=== PATIENT | female | born 1935 | race Caucasian/White ===

== ENCOUNTER 2017-09-30 13:27 | Inpatient (IN) | payer MEDICARE ==
[~2017-09-30 13:27] MED LIST: Lidocaine 1% PF 5 ML VIAL ONE; Ondansetron HCl/PF 4 MG/2 ML Vial ONE; PHENYLEPHRINE-NS 100 MCG/ML 10 ML SYRINGE ONE; PROPOFOL 200 MG/20 ML VIAL ONE; ePHEDrine/0.9% NaCl/PF SYRINGE 50 mg/10 ml ONE
[2017-09-30] MEDS ORDERED: Morphine 4 MG/ML VIAL ONE (15:25)
--- NOTE | 2017-09-30 15:50 | RAD ---
LEFT HIP TWO VIEW 09/30/17 HISTORY: Possible left femur fracture. COMPARISON: None. FINDINGS: There is an impacted valgus angulated subcapital left femoral neck fracture. The obturator ring is in tact on the left. Moderate degenerative disease. IMPRESSION: Mildly impacted and minimally valgus angulated subcapital left femoral neck fracture. POS: [facility]
[2017-09-30] MEDS ORDERED: CEFAZOLIN/Water 2 GM/20 ML SYRINGE SLOW IVP SCH (16:45)
--- NOTE | 2017-09-30 17:27 | CON ---
DATE OF CONSULTATION: 09/30/2017 CHIEF COMPLAINT: Left hip pain. HISTORY OF PRESENT ILLNESS: Ms. Huertas is an 82-year-old female, who fell today. She lost her matilda ce. She tripped and fell on her left side. She had immediate pain. She was unable to bear weight. She was taken to the emergency department in [place] where x-rays were obtained. These demonstrat ed a left femoral neck fracture. She has been since transferred to the [facility] [place]. Orthopedics was consulted for this injury. She denies other injury. She did not lose conscious ness or strike her head. PAST MEDICAL HISTORY: The patient reports being healthy and active. She denies significant active m edical problems. She did fracture her left tibia in the 1960s, treated in a long leg cast. PAST SURGICAL HISTORY: No recent surgeries. ALLERGIES: No known drug allergies. MEDICATIONS: No active medications. SOCIAL HISTORY: The patient denies tobacco, alcohol, or drug use. She lives independently. She is active and golfing and other daily activities without any assistive devices. FAMILY MEDICAL HISTORY: Noncontributory. REVIEW OF SYSTEMS: Positive for left hip pain, otherwise 10-point review of systems is negative. PHYSICAL EXAMINATION: VITAL SIGNS: Stable. She is normotensive. GENERAL: Alert and oriented, in no apparent distress. RESPIRATORY: Breathing comfortably. ABDOMEN: Soft, nontender, nondistended. HEENT: Normocephalic, atraumatic. CARDIOVASCULAR: Pulses palpable and irregularly irregular peripherally. MUSCULOSKELETAL: The patient's left leg is slightly externally rotated. It is not significantly abbe rtened. She is neurovascularly intact distally. She has a palpable pulse. IMAGES: X-rays of the left hip are reviewed, which show a valgus impacted femoral neck fracture with minimal displacement. IMPRESSION: Left valgus impacted femoral neck fracture. PLAN: At this point, I think the patient would do well with operative intervention. We will plan fo r percutaneous screw fixation of the femoral neck fracture to hopefully stabilize her fracture and al low healing. I have reviewed other options including hemiarthroplasty or total hip arthroplasty, alt fred the patient wants to proceed with a more minimal approach. She is aware of risk of avascular n ecrosis to place displacement or nonunion, requiring total hip arthroplasty in the future. She is aw are of postoperative recovery process. She will remain n.p.o. She will have adequate pain control a nd antibiotic and DVT prophylaxis.
--- NOTE | 2017-09-30 17:34 | HP ---
DATE OF ADMISSION: 09/30/2017 REQUESTING PHYSICIAN: Mark Lawrence DO ATTENDING SURGEON: Dr. Sesay. CONSULTATIONS: Orthopedics, Dr. Abraham. HISTORY OF PRESENT ILLNESS: The patient is an 82-year-old woman who reportedly was at home this morning when she tripped and fell and landed on her left hip. The patient was able to get hers elf up to bed and called 911 where she was taken to the emergency room in [place] where she underwe nt evaluation examination and was noted to have a left femoral neck fracture. She was eventually tra nsferred here to our facility to undergo evaluation for surgical intervention and admission. The pat ient denies shortness of breath, loss of consciousness or chest pain. ALLERGIES: None. CURRENT MEDICATIONS: None. PAST MEDICAL HISTORY: Cervical cancer. PAST SURGICAL HISTORY: Hysterectomy. SOCIAL HISTORY: Patient denies tobacco, alcohol, or drug use. Currently lives at home with family. REVIEW OF SYSTEMS: Ten-point review of systems is negative unless otherwise stated. PHYSICAL EXAMINATION: VITAL SIGNS: Blood pressure 114/51, heart rate 78, respirations 16, oxygen saturation is 95% on room air, temperature is 98.1. GENERAL: Patient is resting comfortably in bed. She is alert and oriented x3. [place] coma scale i s 15. HEENT: Head is normocephalic, atraumatic. Eyes: Extraocular motion intact. PERRLA bilaterally. E ars are atraumatic without discharge. Nose is atraumatic without discharge. Oropharynx is clear. NECK: Nontender. Trachea is midline. There is no JVD. CHEST: Clear to auscultation bilaterally with good inspiratory and expiratory effort. HEART: Regular rate and rhythm. ABDOMEN: Soft, flat, nontender with active bowel sounds. Pelvis is stable. The patient is tender t o palpation to the left hip. She has the left hip slightly flexed and internally rotated. EXTREMITIES: Neurovascularly intact x4. BACK: Nontender and atraumatic. LABORATORY FINDINGS: Patient's labs from [place] have not been faxed yet. We will follow up with them and repeat them if needed. RADIOGRAPHS: AP pelvis and two views of the left hip show an impacted left femoral neck fracture. ASSESSMENT AND PLAN: 1. Status post ground level fall. 2. Left femoral neck fracture. 3. Acute pain secondary to trauma. Plan will be to admit the patient to the surgical floor, await evaluation by Dr. Abraham. Patient will be n.p.o. We will do IV pain medications and have physical and occupational therapy evaluate th e patient postoperatively. The evaluation examination, laboratory and radiographic findings were all discussed with Dr. Sesay who will see the patient up on the floor.
[2017-09-30] MEDS ORDERED: Promethazine HCl 25 MG/ML VIAL SLOW IVP PRN (19:37)
[2017-09-30] MEDS ORDERED: Promethazine HCl 25 MG/ML VIAL IM PRN (19:37)
[2017-09-30] MEDS ORDERED: Ondansetron HCl/PF 4 MG/2 ML Vial IVP PRN ×2 (19:37→20:59)
[2017-09-30] MEDS ORDERED: Fentanyl 100 MCG/2 ML VIAL ONE (19:48)
--- NOTE | 2017-09-30 20:14 | RAD ---
EXAM: INTRAOPERATIVE FLUOROSCOPY 09/30/17 HISTORY: ORIF. Left hip fracture. COMPARISON: 09/30/17. EXPOSURE: Not provided. FINDINGS: Internal fixation pins project over the left hip. Alignment is near anatomic. IMPRESSION: Fluoroscopy as above. POS: [facility]
[2017-09-30] MEDS ORDERED: Morphine 4 MG/ML VIAL SLOW IVP PRN (20:59)
[2017-09-30] MEDS ORDERED: Dextrose 50% Abboject 50 ML SYRINGE SLOW IVP PRN (20:59)
[2017-09-30] MEDS ORDERED: Dextrose 5% in Water 1,000 ML IV PRN (20:59)
[2017-09-30] MEDS ORDERED: Ondansetron ODT 4 MG TAB PO PRN (20:59)
[2017-09-30] MEDS ORDERED: hydrALAZINE 20 MG/ML VIAL SLOW IVP PRN (20:59)
[2017-09-30] MEDS ORDERED: Morphine 2 MG/ML SYRINGE IVP PRN (20:59)
[2017-09-30 21:15] VITALS: BMI 21.9
[2017-09-30 21:30] LABS: #Basophils 0.1 thou/uL (0.0-0.2); #Eosinphils 0.1 thou/uL (0.0-0.7); #Lymphocytes 1.9 thou/uL (1.20-3.40); %Basophils 0.4 % (0.0-1.0); %Eosinophils 0.8 % (0.0-10.0); %Lymphocytes 13.6 % (21.0-51.0); %Monocytes 6.8 % (0.0-10.0); %Neutrophils 78.4 % (42.0-75.0); Hemoglobin 11.6 g/dL (12.0-16.0); Mean Corpuscular HGB CONC 32.2 g/dL (32.0-36.0); Mean Corpuscular Hemoglobin 30.1 pg (27.0-31.0); Mean Corpuscular Volume 93.6 fl (81.0-99.0); Mean Platelet Volume 6.5 fL (7.4-10.4); Platelet Count 319 thou/uL (130-400); RBC Distribution Width 12.3 % (11.5-14.5); Red Blood Cell (RBC) Count 3.83 mill/uL (4.20-5.40); White Blood Cell (WBC) Count 14.1 thou/uL (4.8-10.8)
[2017-09-30 21:46] LABS: Anion Gap 12 mmol/L (10-20); BUN (Urea Nitrogen) 14 mg/dL (9.8-20.1); Calc. Creatinine Clearance 57 mL/min (70-130); Calcium 8.9 mg/dL (7.8-10.44); Carbon Dioxide 24 mmol/L (23-31); Chloride 108 mmol/L (98-107); Estimated GFR-MDRD 79; Glucose 114 mg/dL (83-110); Magnesium 1.8 mg/dL (1.6-2.6); Phosphorus 3.6 mg/dL (2.3-4.7); Potassium 4.1 mmol/L (3.5-5.1); Sodium 140 mmol/L (136-145)
[2017-09-30] MEDS: Sodium Chloride 0.9% 1,000 ML IV SCH (22:05)
[2017-09-30] MEDS: Ketorolac Tromethamine 30 MG/ML VIAL IVP SCH (22:05)
[2017-09-30] MEDS: Famotidine 20 MG TAB PO SCH (22:05)
[2017-09-30] MEDS: Acetaminophen 1,000 MG in Premix Bag 1 BAG IVPB SCH (22:21)
--- NOTE | 2017-09-30 22:52 | PRG ---
DATE OF SERVICE: 09/30/2017 SUBJECTIVE: Jaclyn Huertas is an 82-year-old female, postop day 0, status post hip fracture repair. She is recently returned to the floor from the OR. She vocalizes no complaints this evening. Pain is well controlled. OBJECTIVE: VITAL SIGNS: Reviewed and stable. GENERAL: The patient is on room air. Resting in bed, in no acute distress. LUNGS: Breathing is nonlabored. ASSESSMENT AND PLAN: Status post fall, postop day 0, hip fracture repair. IV fluids currently 120cc/hr reduced to 80. Follow urine output. P.o. pain management. Care otherwise as ordered. A.m. labs. Continue to monitor. MTDD
[2017-10-01] MEDS: Acetaminophen 1,000 MG in Premix Bag 1 BAG IVPB SCH (03:29)
[2017-10-01] MEDS: Ketorolac Tromethamine 30 MG/ML VIAL IVP SCH (03:30)
[2017-10-01 06:13] LABS: #Eosinphils 0.3 thou/uL (0.0-0.7); #Lymphocytes 2.1 thou/uL (1.20-3.40); #Monocytes 0.9 thou/uL (0.11-0.59); #Neutrophils 6.3 thou/uL (1.40-6.50); %Basophils 0.4 % (0.0-1.0); %Eosinophils 2.9 % (0.0-10.0); %Lymphocytes 22.2 % (21.0-51.0); %Neutrophils 65.5 % (42.0-75.0); Mean Corpuscular HGB CONC 31.8 g/dL (32.0-36.0); Mean Corpuscular Volume 94.4 fl (81.0-99.0); Mean Platelet Volume 6.4 fL (7.4-10.4); Platelet Count 267 thou/uL (130-400); RBC Distribution Width 12.4 % (11.5-14.5); Red Blood Cell (RBC) Count 3.66 mill/uL (4.20-5.40); White Blood Cell (WBC) Count 9.6 thou/uL (4.8-10.8)
[2017-10-01 06:36] LABS: Anion Gap 10 mmol/L (10-20); BUN (Urea Nitrogen) 13 mg/dL (9.8-20.1); Calc. Creatinine Clearance 56 mL/min (70-130); Calcium 8.5 mg/dL (7.8-10.44); Carbon Dioxide 23 mmol/L (23-31); Chloride 109 mmol/L (98-107); Estimated GFR-MDRD 78; Glucose 108 mg/dL (83-110); Potassium 3.9 mmol/L (3.5-5.1); Sodium 138 mmol/L (136-145)
[2017-10-01] MEDS: traMADol HCl 50 MG TAB PO PRN ×2 (10:03→15:55)
[2017-10-01] MEDS: Famotidine 20 MG TAB PO SCH ×2 (10:03→19:48)
--- NOTE | 2017-10-01 11:11 | OP ---
DATE OF PROCEDURE: 09/30/2017 PREOPERATIVE DIAGNOSIS: Left femoral neck fracture. POSTOPERATIVE DIAGNOSIS: Left femoral neck fracture. OPERATION: Left hip percutaneous screw fixation. IMPLANTS: Three 7.3 mm cannulated screws from [employer] were used. SURGEON: Vijay Abraham M.D. ANESTHESIA: General plus local. COMPLICATIONS: None. ESTIMATED BLOOD LOSS: 50 mL INDICATIONS: Ms. Huertas is an 82-year-old female who fell. She sustained a fracture of the femoral neck on the left hip. This was valgus impacted. She was indicated for percutaneous screw fixation t o restore alignment and hopefully stabilize the fracture while she heals. Risks have been reviewed i ncluding avascular necrosis, screw or hardware related pain, infection, wound problem and others. DESCRIPTION OF PROCEDURE: Ms. Huertas was identified in the preoperative holding area. Her correct e xtremity was marked. She was carried to the operating room. She was positioned supine. General ane sthesia was induced. She was placed on the fracture table. Intraoperative x-ray was used to evaluat e the fracture. We then prepped and draped the left lower extremity. At this point, we made a small incision over the lateral thigh. We dissected down through the subcutaneous tissue to the bony leve l. A guidewire was then inserted in the inferior position of the femoral neck. We placed 2 addition al guidewires to perform an inverted triangle pattern. At this point, we took x-ray images confirmin g placement. We then overdrilled the guidewires. We subsequently placed three 7.3 mm cannulated scr ews. We took final x-ray images. At this point, the wound was irrigated and closed with 2-0 Vicryl suture and seth for the skin. A sterile dressing was applied. The patient was taken to the [facility] room in good condition without complication.
[2017-10-01] MEDS: Sodium Chloride 0.9% 1,000 ML IV SCH ×2 (11:38→19:49)
--- NOTE | 2017-10-01 11:49 | PRG ---
DATE OF SERVICE: 10/01/2017 SUBJECTIVE: The patient is hospital day #2, postop day #1 status post ground level fall which she khalil stained a left hip fracture. The patient underwent open reduction internal fixation of same. She to lerated this procedure well. This morning, she states her pain is controlled. She is tolerating a d iet and is awaiting physical and occupational therapy. PHYSICAL EXAMINATION: VITAL SIGNS: Temperature is 97.7, heart rate 66, blood pressure 101/55, respirations 16, oxygen satu ration is 97% on 1 liter via nasal cannula. GENERAL: The patient is resting comfortably in bed. She is alert and oriented x3. [place] coma sca le is 15. HEENT: Unremarkable. LUNGS: Clear to auscultation with good inspiratory and expiratory effort. HEART: Regular rate and rhythm. ABDOMEN: Soft, flat, nontender with active bowel sounds. EXTREMITIES: Neurovascularly intact x4. Postop dressing is clean, dry, and intact. LABORATORY DATA: White blood cell count 9.6, hemoglobin 11.0, hematocrit 34.6, platelets 267. Sodiu m 138, potassium 3.9, chloride 109, CO2 of 23, BUN 13, creatinine 0.72, glucose 108. There are no ra diographs reviewed this morning. ASSESSMENT AND PLAN: 1. Status post ground level fall. 2. Left femoral neck fracture status post open reduction internal fixation. Plan will be to begin physical and occupational therapy, rehab consultation, p.o. pain control and co ntinue supportive care. This examination was done with Dr. Sesay during rounds this morning.
[2017-10-01] MEDS: Acetaminophen 500 MG TAB PO SCH ×3 (12:54→23:59)
[2017-10-01] MEDS: traMADol HCl 50 MG TAB PO SCH ×3 (12:54→23:59)
[2017-10-01] MEDS: Ibuprofen 200 MG TAB PO SCH ×2 (15:54→19:49)
--- NOTE | 2017-10-01 21:24 | PRG ---
DATE OF SERVICE: 10/01/2017. SUBJECTIVE: This is an 82-year-old female postop day #1 status post hip fracture repair after a grou nd-level fall. The patient has done well throughout the day. Pain is controlled. She has no compla int this evening. OBJECTIVE: VITAL SIGNS: Reviewed and stable. GENERAL: The patient is resting in bed on room air in no acute distress. Breathing is nonlabored. ASSESSMENT: As documented in daily progress note. PLAN: Continue care as ordered. Continue to monitor.
[2017-10-02] MEDS: traMADol HCl 50 MG TAB PO SCH ×4 (04:47→23:52)
[2017-10-02] MEDS: Acetaminophen 500 MG TAB PO SCH ×4 (04:47→23:52)
[2017-10-02] MEDS: traMADol HCl 50 MG TAB PO PRN (09:25)
[2017-10-02] MEDS: Famotidine 20 MG TAB PO SCH ×2 (09:25→21:11)
[2017-10-02] MEDS: Ibuprofen 200 MG TAB PO SCH ×3 (09:25→21:11)
[2017-10-02] MEDS: Senokot S 8.6-50 MG TAB PO SCH (21:12)
--- NOTE | 2017-10-02 22:51 | DIS ---
DATE OF ADMISSION: 09/30/2017 DATE OF DISCHARGE: 10/02/2017 ADMISSION DIAGNOSES: 1. Status post ground-level fall. 2. Left femoral neck fracture. CONSULTATIONS: Orthopedics, Dr. Abraham. PROCEDURE: Left hip percutaneous screw fixation. HISTORY OF PRESENT ILLNESS: The patient is an 82-year-old woman, who reportedly fell at [facility] and landed on her left hip. The patient was brought to the emergency department in [facility] she underwent evaluation and examination and was noted to have a left hip fracture, at which time, she was transferred to our facility for us to admit her and obtain orthopedic consultation. HOSPITAL COURSE: The patient was able to undergo her procedure, which she tolerated well. The , the patient was able to work with physical and occupational therapy and at the time of disc harge, she had continued to progress with physical and occupational therapy. Her pain was controlled . She was tolerating her diet and she was discharged to the swing bed facility in [place]. She wi ll follow up with Dr. Abraham in 2-3 weeks, sooner as needed. Of note, the patient originally was supposed to leave today, but it was for transportation reasons, she will leave first thing in the [facility], [place].
--- NOTE | 2017-10-03 03:50 | PRG ---
DATE OF SERVICE: 10/02/2017 SUBJECTIVE: This is an 82-year-old female postop day #2 status post hip fracture repair after a grou nd level fall. Patient has continued to do well during her hospitalization. She was scheduled for d ischarge in the morning; however, this evening our facility was contacted by the [facility] a nd informed that there were issues with insurance paperwork. The patient will be unable to be discha rged in a.m. Tonight, she vocalizes no complaint. OBJECTIVE: VITAL SIGNS: Reviewed and stable. GENERAL: The patient is afebrile. Resting in bed in no acute distress. Breathing is nonlabored. ASSESSMENT AND PLAN: As documented in the daily progress note. Continue care as ordered. Continue PT and OT. Continue to monitor.
[2017-10-03] MEDS: Acetaminophen 500 MG TAB PO SCH ×3 (06:19→20:08)
[2017-10-03] MEDS: traMADol HCl 50 MG TAB PO SCH ×3 (06:20→20:08)
[2017-10-03] MEDS: Polyethylene Glycol 3350 17 GM Packet PO SCH (09:08)
[2017-10-03] MEDS: Senokot S 8.6-50 MG TAB PO SCH ×2 (09:08→20:35)
[2017-10-03] MEDS: Ibuprofen 200 MG TAB PO SCH ×3 (09:08→20:37)
[2017-10-03] MEDS: Famotidine 20 MG TAB PO SCH ×2 (09:08→20:34)
[2017-10-03] MEDS: traMADol HCl 50 MG TAB PO PRN (09:30)
--- NOTE | 2017-10-03 18:43 | PRG ---
DATE OF SERVICE: 10/03/2017 SUBJECTIVE: The patient is status post left hip fracture in which she underwent left percutaneous sc rew fixation. Originally, the patient was supposed to be discharged this morning, but for some unkno wn insurance reasons, the patient now will be here most likely until Thursday. Otherwise, the patient is doing well. She continues to tolerate diet. Her pain is controlled. She worked with physical an d occupational therapy. PHYSICAL EXAMINATION: VITAL SIGNS: Temperature is 97.8, heart rate is 62, blood pressure 143/74, respirations 20, and oxyg en saturation is 96% on room air. HEENT: Unremarkable. CHEST: Lungs are clear to auscultation bilaterally. HEART: Regular rate and rhythm. ABDOMEN: Soft, flat, and nontender with active bowel sounds. EXTREMITIES: Neurovascularly intact x4. Postop dressing is clean, dry, and intact. LABORATORY DATA: There are no labs or radiographs to review this morning. ASSESSMENT AND PLAN: 1. Status post ground level fall. 2. Status post left hip fracture which subsequently underwent percutaneous pinning. Plan will be to continue physical and occupational therapy and await placement.
--- NOTE | 2017-10-03 23:42 | PRG ---
DATE OF SERVICE: 10/03/2017 SUBJECTIVE: This is an 82-year-old female status post hip fracture repair. The patient is currently awaiting insurance approval for placement. She vocalized no complaint this evening. OBJECTIVE: VITAL SIGNS: Reviewed and stable. The patient is afebrile. LUNGS: Breathing is nonlabored. ASSESSMENT AND PLAN: As documented in daily progress note. Continue care as ordered. Continue PT/O T. Continue to monitor.
[2017-10-04] MEDS: Acetaminophen 500 MG TAB PO SCH ×5 (00:29→23:54)
[2017-10-04] MEDS: traMADol HCl 50 MG TAB PO SCH ×5 (00:29→23:54)
[2017-10-04] MEDS: Famotidine 20 MG TAB PO SCH ×2 (10:07→21:48)
[2017-10-04] MEDS: Ibuprofen 200 MG TAB PO SCH ×3 (10:07→21:48)
[2017-10-04] MEDS: Senokot S 8.6-50 MG TAB PO SCH ×2 (10:08→21:48)
[2017-10-04] MEDS: Polyethylene Glycol 3350 17 GM Packet PO SCH (10:08)
--- NOTE | 2017-10-04 16:59 | PRG ---
DATE OF SERVICE: 10/04/2017 SUBJECTIVE: The patient is status post ground level fall which she sustained a left hip fracture whi ch subsequently underwent percutaneous pinning. The patient tolerated this procedure well and has be en working with physical and occupational therapy. The patient is currently awaiting insurance appro abel for placement. The patient is tolerating a diet. Pain is controlled and has no current complain ts. PHYSICAL EXAMINATION: VITAL SIGNS: Temperature is 98.2, heart rate 75, blood pressure 153/73, respirations 20, oxygen satu ration is 95% on room air. GENERAL: The patient is awake, alert, and oriented. [place] coma scale is 15. HEENT: Unremarkable. LUNGS: Clear to auscultation bilaterally. HEART: Regular rate and rhythm. ABDOMEN: Soft, flat, nontender with active bowel sounds. EXTREMITIES: Neurovascularly intact x4. Postop dressing is clean, dry, and intact. LABORATORY DATA: There are no labs or radiographs reviewed this morning. ASSESSMENT AND PLAN: 1. Status post ground level fall. 2. Status post left hip fracture that was repaired with percutaneous pinning. PLAN: Will be to continue physical and occupational therapy and await insurance approval for [facility]. This evaluation and examination were done with Dr. Sesay during rounds this morning.
--- NOTE | 2017-10-05 00:26 | PRG ---
DATE OF SERVICE: 10/04/2017 SUBJECTIVE: This is an 82-year-old female status post hip fracture repair. Postoperatively, the pat ient is doing well. She vocalized no complaints this evening. OBJECTIVE: VITAL SIGNS: Reviewed and stable. GENERAL: Patient is afebrile. Resting in bed in no acute distress. LUNGS: Breathing is nonlabored. ASSESSMENT AND PLAN: As documented in daily progress note. Continue care as ordered. Continue to m onitor. Anticipate discharge after insurance issues that resolved by case management.
[2017-10-05] MEDS: traMADol HCl 50 MG TAB PO SCH ×3 (06:27→15:03)
[2017-10-05] MEDS: Acetaminophen 500 MG TAB PO SCH ×3 (06:28→15:03)
[2017-10-05 08:50] VITALS: BP 149/75; TEMP 97.9
[2017-10-05] MEDS ORDERED: Enoxaparin Sodium 40 MG/0.4 ML SYRINGE SC SCH (09:00)
[2017-10-05] MEDS: Polyethylene Glycol 3350 17 GM Packet PO SCH (09:24)
[2017-10-05] MEDS: Senokot S 8.6-50 MG TAB PO SCH (09:24)
[2017-10-05] MEDS: Famotidine 20 MG TAB PO SCH (09:24)
[2017-10-05] MEDS: Ibuprofen 200 MG TAB PO SCH ×2 (09:24→15:03)
== END 2017-10-05 16:26 | disposition swing bed (61) | DRG 482 ==
LOC: ERS 13:27 → SURG A 15:38
PROVIDERS: ADMIT Surgery; ATTEND Surgery
PROC: 0QH734Z Insertion of Internal Fixation Device into Left Upper Femur, Percutaneous Approach (ICD-10-PCS; principal; 2017-09-30)
DX: S72.002A Fracture of unspecified part of neck of left femur, initial encounter for closed fracture (principal); G89.11 Acute pain due to trauma; W18.30XA Fall on same level, unspecified, initial encounter; Z85.41 Personal history of malignant neoplasm of cervix uteri
CPT/HCPCS: 36415; 76001; 80048; 83735; 84100; 85025; 96374; C1713; C1769; G0390; G8978-GP-CM; G8979-GP-CK; G8987-GO-CJ; G8988-GO-CI; J0131; J1650; J1885; J2001; J2270; J2405; J2704; J3010